=== PATIENT | male | born 1995 | race Caucasian/White ===

== ENCOUNTER 2021-09-01 18:02 | Emergency (ER) | payer MEDICAID ==
[~2021-09-01] VITALS: Ht 167.6 cm; Wt 80.0 kg
[2021-09-01] MEDS ORDERED: LIDOCAINE HCL/EPINEPHRINE 1%-EPI 1:100,000 20 ML VIAL INFIL NR (18:30)
[2021-09-01] MEDS ORDERED: BO1 TP (23:57)
[2021-09-02 00:15] VITALS: BP 138/66
== END 2021-09-02 00:16 | disposition home or self-care (01) ==
LOC: ER 18:02
DX: S51.812A Laceration without foreign body of left forearm, initial encounter (principal); W25.XXXA Contact with sharp glass, initial encounter; Y93.89 Activity, other specified; Y92.89 Other specified places as the place of occurrence of the external cause
CPT/HCPCS: 12005; 73090; 99283; J3490; Z7610

== ENCOUNTER 2021-09-04 20:38 | Emergency (ER) | payer MEDICAID ==
[~2021-09-04] VITALS: Ht 162.6 cm; Wt 81.0 kg
[~2021-09-04 20:38] MED LIST: BO1 TP
[2021-09-04 20:40] VITALS: BP 120/70
== END 2021-09-04 22:58 | disposition home or self-care (01) ==
LOC: ER 20:38
DX: S51.812D Laceration without foreign body of left forearm, subsequent encounter (principal); X58.XXXD Exposure to other specified factors, subsequent encounter
CPT/HCPCS: 99281

== ENCOUNTER 2021-09-19 21:01 | Emergency (ER) | payer MEDICAID ==
[~2021-09-19] VITALS: Ht 157.5 cm; Wt 77.0 kg
[2021-09-19 21:53] VITALS: BP 119/69
== END 2021-09-19 22:47 | disposition home or self-care (01) ==
LOC: ER 21:01
DX: Z48.02 Encounter for removal of sutures (principal)
CPT/HCPCS: 99281